=== PATIENT | female | born 1935 | race Caucasian/White ===

== ENCOUNTER → 2016-11-24 | Outpatient (CLI) | payer MEDICARE ==
[~2016-11-24] MED LIST: AMLODIPINE BESY10 MG PO; ASPIRIN81 M2 PO; ATORVASTATIN CA10 MG PO; BYSTOLIC10 MG PO; DUREZOL5 ML OD; HYDRALAZINE HCL25 MG PO; HYDROCODON-ACE1 EAC7 PO; NORCO1 TAB 10/3 PO; ONDANSETRON HCL4 M1 PO; SYNTHROID PO
--- NOTE | ~2016-11-24 | US37 ---
[facility] A Service of [facility] RADIOLOGY TEXT RESULTS PATIENT: NORBERTO NERI LOCATION: CNIV : 36 UNIT #: [id number] AGE: [address]: EDER MATTSON APRN SEX: F ORDER DR: [id number] [facility] [address] [place], [place] [address] [id number] O MR#: [id number] Acc #: [id number] NAME: NORBERTO NERI : 1935 SEX: F STUDY DATE/TIME: 11/24/2016 10:29 UNIT: CNIV ROOM: STUDY DESCRIPTION: US Carotid W/Doppler Bilateral Attending Physician: Eder Mattsno Aprn Referring Physician: Eder Mattson Aprn Ordering Physician: Eder Mattson Aprn Primary Care Physician: Germain Anderson M.D. MEDICAL IMAGING REPORT This report is preliminary unless electronic signature is present EXAM Bilateral carotid Doppler, bilateral HISTORY Carotid stenosis. FINDINGS The right common carotid, internal carotid and external carotid arteries are patent with mild to moderate plaque in the carotid bulb and proximal internal and external carotid arteries. Velocity of the common carotid artery is 65 cm/ second. Peak systolic velocity of the right paroxysmal internal carotid artery is 150 cm/second with an end diastolic velocity of 36 cm/second for an ICA to CCA ratio of 2.3. External carotid artery had a velocity of 202 cm/second. The vertebral artery is visualized with antegrade flow. The left common carotid, internal carotid and external carotid arteries are patent with minimal plaque noted in the common carotid artery, but widely patent and normal appearing carotid bulb as well as internal and external carotid arteries. Velocity of the common carotid artery is 110 cm/sec. Peak systolic velocity of the left paroxysmal internal carotid artery is 102 cm/sec with an end diastolic velocity of 21 cm/sec for an ICA/CCA ratio of 0.9. External carotid artery had a velocity of 146 cm/sec. The vertebral artery is visualized with retrograde flow. IMPRESSION 1. A 50% to 69% stenosis of the internal carotid artery and normal appearance of the left internal carotid artery. 2. Elevated velocity consistent with stenosis of the right external carotid artery, but normal appearance of the left external carotid artery. 3. Normal antegrade flow of the right vertebral artery, but retrograde STS. [facility] A Service of [facility] RADIOLOGY TEXT RESULTS PATIENT: NORBERTO NERI LOCATION: CNIV : 36 UNIT #: [id number] AGE: [address]: EDER MATTSON [employer]ATION ANALYST SEX: F ORDER DR: flow of the left vertebral artery consistent with possible left subclavian artery stenosis or occlusion. Dictated by... Aditi Ramirez M.D. THIS IS AN ELECTRONICALLY VERIFIED REPORT Aditi Ramirez M.D. at 11/26/2016 2:55 PM BONNIE/claudia TD: 11/24/2016 13:52 JOB #: [id number] MEDICAL IMAGING REPORT Page 1 of 1 COPY
== END | disposition home or self-care (01) ==
LOC: CNIV 10:11
DX: I65.23 Occlusion and stenosis of bilateral carotid arteries (principal)
CPT/HCPCS: 93880